=== PATIENT | female | born 1955 | race Asian ===

== ENCOUNTER 2021-06-10 22:34 | Emergency (ER) | payer OTHER ==
[~2021-06-10] VITALS: Ht 160 cm; Wt 93.0 kg
[2021-06-10 23:12] LABS: PLATELET COUNT 156 K/uL (152-353); POTASSIUM 3.5 mmol/L (3.6-5.2)
[2021-06-11 00:48] VITALS: BP 111/67; TEMP 98.5
[2021-06-11] MEDS ORDERED: LIPITOR40 MG PO (09:26)
[2021-06-11] MEDS ORDERED: BENZ1TAB43 PO (09:26)
[2021-06-11] MEDS ORDERED: FERROUS SULF325 M1 PO (09:27)
[2021-06-11] MEDS ORDERED: LANTUS100 UNIT/M SC (09:28)
[2021-06-11] MEDS ORDERED: ESCI10TA PO (09:29)
[2021-06-11] MEDS ORDERED: MIRALAX17 GM PO (09:30)
[2021-06-11] MEDS ORDERED: AMLODIPINE BESYLATE PO (09:31)
[2021-06-11] MEDS ORDERED: OLANZAPINE10 M2 PO (09:32)
[2021-06-11] MEDS ORDERED: OLANZAPINE20 M1 PO (09:33)
[2021-06-11] MEDS ORDERED: PANTOPRAZOLE 40MG TA PO (09:33)
[2021-06-11] MEDS ORDERED: DIPH50CA30 PO (09:34)
[2021-06-11] MEDS ORDERED: CARV6.25 PO (09:35)
[2021-06-11] MEDS ORDERED: MEMA10TA2 PO (09:36)
[2021-06-11] MEDS ORDERED: RISP1TAB PO (09:37)
[2021-06-11] MEDS ORDERED: DIPH50IN IM (09:38)
[2021-06-11] MEDS ORDERED: LORA2INJ21 IM (09:39)
[2021-06-11] MEDS ORDERED: LORA1TAB17 PO (09:40)
[2021-06-11] MEDS ORDERED: [UNRECOGNIZED DRUG - OTHER] PO (09:42)
[2021-06-11] MEDS ORDERED: TYLENOL PO (09:43)
[2021-06-11] MEDS ORDERED: OXCARBAZEPIN300 MG PO (09:51)
== END 2021-06-11 00:48 | disposition still patient (30) ==
LOC: ED 22:34
PROVIDERS: Emergency Medicine
DX: F03.91 Unspecified dementia, unspecified severity, with behavioral disturbance (principal); Z11.52 Encounter for screening for COVID-19; Z04.6 Encounter for general psychiatric examination, requested by authority
CPT/HCPCS: 36415; 80053; 85027; 87635; 93005; 99283; U0003

== ENCOUNTER 2021-06-16 20:01 | Observation (INO) | payer OTHER ==
[2021-06-16] VITALS (8 sets, daily range): BP systolic 145–173; BP diastolic 73–99; TEMP 97.5–98.8; Ht 152.4 cm; Wt 90.9 kg
[~2021-06-16] VITALS: Ht 152.4 cm; Wt 90.9 kg
[~2021-06-16 20:01] MED LIST: AMLODIPINE BESYLATE PO; BENZ1TAB43 PO; CARV6.25 PO; DIPH50CA30 PO; DIPH50IN IM; ESCI10TA PO; FERROUS SULF325 M1 PO; LANTUS100 UNIT/M SC; LIPITOR40 MG PO; LORA1TAB17 PO; LORA2INJ21 IM; MEMA10TA2 PO; MIRALAX17 GM PO; OLANZAPINE10 M2 PO; OLANZAPINE20 M1 PO; OXCARBAZEPIN300 MG PO; PANTOPRAZOLE 40MG TA PO; RISP1TAB PO; TYLENOL PO; [UNRECOGNIZED DRUG - OTHER] PO
[2021-06-16 20:48] LABS: PLATELET COUNT 160 K/uL (152-353)
[2021-06-16 20:58] LABS: POTASSIUM 3.7 mmol/L (3.6-5.2)
[2021-06-17 03:57] VITALS: BP 159/95; TEMP 96.9
[2021-06-17 07:35] LABS: PLATELET COUNT 145 K/uL (152-353)
[2021-06-17 07:43] LABS: POTASSIUM 4.3 mmol/L (3.6-5.2)
[2021-06-17 08:00] VITALS: BP 160/104; TEMP 98.1
[2021-06-17 12:00] VITALS: BP 167/98; TEMP 98.1
[2021-06-17] MEDS ORDERED: MIRTAZAPINE7.5 MG PO (12:44)
[2021-06-17] MEDS ORDERED: CEFD300C2 PO (12:45)
[2021-06-17] MEDS ORDERED: OLANZAPINE20 M1 PO (12:46)
[2021-06-17] MEDS ORDERED: INSUINJP SC (12:47)
[2021-06-17 16:00] VITALS: BP 173/99; TEMP 98.2
[2021-06-17 20:07] VITALS: BP 155/101; TEMP 97.8
[2021-06-18 00:09] VITALS: BP 129/81; TEMP 98.5
[2021-06-18 04:00] VITALS: BP 171/111; TEMP 97.9
[2021-06-18 04:56] LABS: PLATELET COUNT 159 K/uL (152-353)
[2021-06-18 05:16] LABS: POTASSIUM 4.3 mmol/L (3.6-5.2)
[2021-06-18 08:00] VITALS: BP 158/90; TEMP 98
[2021-06-18 12:00] VITALS: BP 161/100; TEMP 98.3
[2021-06-18 16:00] VITALS: BP 173/91; TEMP 98.2
[2021-06-18 20:00] VITALS: BP 142/93; TEMP 98.7
[2021-06-19] VITALS: BP 121/67; TEMP 98.8
[2021-06-19 04:00] VITALS: BP 138/91; TEMP 98.4
[2021-06-19 08:00] VITALS: BP 151/95; TEMP 98.3
[2021-06-19] MEDS ORDERED: AMLODIPINE BESYLATE PO (12:59)
[2021-06-19] MEDS ORDERED: LEVE500T5 PO (13:01)
== END 2021-06-19 20:33 ==
LOC: ED 20:01 → MED/SURG 22:00
PROVIDERS: ADMIT Emergency Medicine; ATTEND Internal Medicine Endocrinology, Diabetes & Metabolism
DX: G40.89 Other seizures (principal); G30.8 Other Alzheimer's disease; F02.81 Dementia in other diseases classified elsewhere, unspecified severity, with behavioral disturbance; F20.0 Paranoid schizophrenia; E11.9 Type 2 diabetes mellitus without complications; K21.9 Gastro-esophageal reflux disease without esophagitis; G20 Parkinson's disease; K73.8 Other chronic hepatitis, not elsewhere classified; D50.9 Iron deficiency anemia, unspecified; K59.09 Other constipation; K74.69 Other cirrhosis of liver
CPT/HCPCS: 36415; 80048; 80053; 82948; 85027; 87635; 96365; 96367; 96372; 96374; 96375; 96376; 99220; 99284; A9576; G0378; J1815; J1953; J2060; U0003